=== PATIENT | female | born 1965 | race Caucasian/White ===

== ENCOUNTER 2021-01-13 12:00 | Inpatient (IN) | payer BC ==
[~2021-01-13] VITALS: Ht 162.6 cm; Wt 73.5 kg
[~2021-01-13 12:00] MED LIST: ATENOLOL25 MG PO; BUSPAR5 MG PO; CEPHALEXIN500 M1 PO; MULTI VITAMINS1 TAB PO
[2021-01-13 12:09] VITALS: BP 173/73
[2021-01-13 12:26] LABS: BASO # 0.1 10*3/uL (0.0-0.1); BASO % 0.7 % (0.0-1.0); EOS # 0.4 10*3/uL (0.0-0.4); EOS % 5.3 % (1.0-4.0); HEMATOCRIT 43.2 % (37.0-47.0); LYMPH # 1.6 10*3/uL (1.3-4.4); LYMPH % 23.2 % (27.0-41.0); MEAN CELL VOLUME 94.5 fl (81.0-99.0); MEAN CORPUSCULAR HGB 30.9 pg (27.0-31.0); MEAN CORPUSCULAR HGB CONC 32.6 g/dl (33.0-37.0); MEAN PLATELET VOLUME 9.6 fl (9.6-12.3); MONO # 0.5 10*3/uL (0.1-1.0); MONO % 7.7 % (3.0-9.0); NEUT # 4.4 10*3/uL (2.3-7.9); NEUT % 62.8 % (47.0-73.0); PLATELET COUNT AUTOMATED 265 10*3/uL (130-400); RED BLOOD COUNT 4.57 10*6/uL (4.10-5.10); RED CELL DISTRI WIDTH 11.9 % (0-14.5)
[2021-01-13 12:42] LABS: ALBUMIN 4.4 gm/dl (3.1-4.5); ALKALINE PHOSPHATASE 89 U/L (45-117); BUN 13 mg/dl (7-24); CHLORIDE 106 mmol/L (98-107); SGOT/AST 23 IU/L (3-35); SGPT/ALT 33 U/L (12-78); SODIUM 135 mmol/L (136-145); TOTAL PROTEIN 8.2 gm/dL (6.4-8.2)
[2021-01-13 12:43] LABS: TROPONIN I < 0.015 ng/ml (<0.045)
[2021-01-13] MEDS ORDERED: GOOD SENSE ASP325 MG PO (14:00)
[2021-01-13 16:00] VITALS: BP 122/79
[2021-01-13 20:00] VITALS: BP 136/54
[2021-01-13] MEDS ORDERED: ISORDIL TITRADOS5 MG PO (21:30)
[2021-01-14] VITALS: BP 101/72
[2021-01-14 06:22] LABS: BASO % 0.7 % (0.0-1.0); EOS # 0.4 10*3/uL (0.0-0.4); EOS % 6.2 % (1.0-4.0); HEMATOCRIT 42.2 % (37.0-47.0); LYMPH # 1.4 10*3/uL (1.3-4.4); LYMPH % 24.2 % (27.0-41.0); MEAN CELL VOLUME 92.7 fl (81.0-99.0); MEAN CORPUSCULAR HGB CONC 33.4 g/dl (33.0-37.0); MONO # 0.6 10*3/uL (0.1-1.0); MONO % 10.1 % (3.0-9.0); NEUT # 3.5 10*3/uL (2.3-7.9); NEUT % 58.5 % (47.0-73.0); PLATELET COUNT AUTOMATED 267 10*3/uL (130-400); RED BLOOD COUNT 4.55 10*6/uL (4.10-5.10)
[2021-01-14 06:41] LABS: ALKALINE PHOSPHATASE 87 U/L (45-117); BUN 13 mg/dl (7-24); CHLORIDE 108 mmol/L (98-107); CHOLESTEROL 207 mg/dL (<200); FREE T4 0.92 ng/dl (0.76-1.46); LDL CHOLESTEROL 121 mg/dL (9-159); POTASSIUM 4.3 mmol/L (3.5-5.1); SGOT/AST 18 IU/L (3-35); SGPT/ALT 32 U/L (12-78); SODIUM 140 mmol/L (136-145); TOTAL PROTEIN 7.5 gm/dL (6.4-8.2); TRIGLYCERIDES 98 mg/dl (<150)
[2021-01-14 08:00] VITALS: BP 117/47
[2021-01-14 09:19] LABS: VITAMIN D, 25-HYDROXY 73.9 ng/mL (30-100)
[2021-01-14 12:00] VITALS: BP 120/71
[2021-01-14 16:00] VITALS: BP 128/77
[2021-01-14 20:00] VITALS: BP 135/80
[2021-01-14] MEDS ORDERED: ATORVASTATIN CA40 M1 PO (20:08)
== END 2021-01-14 20:32 | disposition home or self-care (01) | DRG 392 ==
LOC: ED 12:00 → EDHOLD 12:53 → 4E 12:53
PROVIDERS: Emergency Medicine; Registered Nurse; ADMIT Student in an Organized Health Care Education/Training Program; ATTEND Student in an Organized Health Care Education/Training Program
PROC: 4A02XM4 Measurement of Cardiac Total Activity, External Approach (ICD-10-PCS; principal; 2021-01-14)
PROC: 3E033HZ Introduction of Radioactive Substance into Peripheral Vein, Percutaneous Approach (ICD-10-PCS; 2021-01-14)
DX: K21.9 Gastro-esophageal reflux disease without esophagitis (principal); E87.2 Acidosis; E87.1 Hypo-osmolality and hyponatremia; F41.9 Anxiety disorder, unspecified; E83.41 Hypermagnesemia; Z98.891 History of uterine scar from previous surgery; Z90.49 Acquired absence of other specified parts of digestive tract; Z82.49 Family history of ischemic heart disease and other diseases of the circulatory system; Z82.0 Family history of epilepsy and other diseases of the nervous system; Z88.2 Allergy status to sulfonamides; Z88.8 Allergy status to other drugs, medicaments and biological substances; Z88.1 Allergy status to other antibiotic agents; Z79.899 Other long term (current) drug therapy; Z79.82 Long term (current) use of aspirin

== ENCOUNTER → 2021-01-18 | Outpatient (CLI) | payer BC ==
[~2021-01-18] MED LIST changes: +ATORVASTATIN CA40 M1 PO; +GOOD SENSE ASP325 MG PO; +ISORDIL TITRADOS5 MG PO
[2021-01-18 11:54] LABS: ACT PARTIAL THROMBO TIME 28.3 SECONDS (20.0-32.1)
== END | disposition home or self-care (01) ==
LOC: LAB 10:48
PROVIDERS: ATTEND Internal Medicine
DX: I20.0 Unstable angina (principal); Z20.822 Contact with and (suspected) exposure to COVID-19

== ENCOUNTER → 2021-05-30 | Outpatient (CLI) | payer BC ==
[2021-05-30 12:59] LABS: BUN 15 mg/dl (7-24); CHLORIDE 105 mmol/L (98-107); CREATININE 0.73 mg/dL (0.55-1.02); POTASSIUM 4.9 mmol/L (3.5-5.1); SODIUM 140 mmol/L (136-145)
== END | disposition home or self-care (01) ==
LOC: LAB 12:21
PROVIDERS: ATTEND Family Medicine
DX: E87.0 Hyperosmolality and hypernatremia (principal)